=== PATIENT | male | born 1980 | race Caucasian/White ===

== ENCOUNTER 2020-12-28 05:37 | Outpatient (RCR) | payer BC, SELFPAY ==
[2020-12-07] MEDS: Normal Saline Flush 10 ML SYR IVP (10:13)
[2020-12-07 10:20] LABS: Abs Immature Grans 0.01 10^3/uL (0.0-0.06); Absolute Basophil Count 0.02 10^3/uL (0.0-0.2); Absolute Eosinophil Count 0.08 10^3/uL (0.0-0.7); Absolute Lymphocyte Count 1.67 10^3/uL (1.2-3.4); Absolute Monocyte Count 0.49 10^3/uL (0.1-0.8); Absolute Neutrophil Count 1.17 10^3/uL (1.2-6.7); Basophils % 0.6; Eosinophils % 2.3; HCT 39.2 % (40.0-50.0); HGB 12.1 g/dL (13.5-17.5); Immature Grans % 0.3; Lymphocytes % 48.5; MCH 24.7 pg (27.0-33.0); MCHC 30.9 % (32.0-36.0); MCV 80.2 fL (80-95); MPV 9.9 fL (8.0-11.0); Monocytes % 14.2; Neutrophils % 34.1; Nucleated RBC 0 %; Platelet Count 212 10^3/uL (130-400); RBC 4.89 10^6/uL (4.36-5.78); RDW 13.5 % (11.8-14.1); RDW-SD 39.1 fL; WBC 3.44 10^3/uL (4.4-10.8)
[2020-12-07 10:32] LABS: ALT 30 U/L (16-63); AST 22 U/L (15-37); Albumin 3.7 g/dL (3.4-5.0); Alkaline Phosphatase 64 U/L (46-116); Anion Gap 11.2 mmol/L (3-11); BUN 17 mg/dL (7-18); Bilirubin, Total 0.3 mg/dL (0.2-1.0); CO2 24.8 mmol/L (21.0-32.0); CREATININE 0.9 mg/dL (0.70-1.30); Calcium 8.6 mg/dL (8.5-10.1); Chloride 108 mmol/L (98-107); Glucose 101 mg/dL (74-106); Potassium 4.3 mmol/L (3.5-5.1); Sodium 144 mmol/L (136-145); Total Protein 7.1 g/dL (6.4-8.2)
[2020-12-14] MEDS: Normal Saline Flush 10 ML SYR IVP (10:45)
[2020-12-14 10:49] LABS: Abs Immature Grans 0.03 10^3/uL (0.0-0.06); Absolute Basophil Count 0.03 10^3/uL (0.0-0.2); Absolute Eosinophil Count 0.06 10^3/uL (0.0-0.7); Absolute Lymphocyte Count 2.16 10^3/uL (1.2-3.4); Absolute Monocyte Count 0.56 10^3/uL (0.1-0.8); Absolute Neutrophil Count 2.36 10^3/uL (1.2-6.7); Basophils % 0.6; Eosinophils % 1.2; HCT 42.6 % (40.0-50.0); HGB 13.3 g/dL (13.5-17.5); Immature Grans % 0.6; Lymphocytes % 41.5; MCH 24.7 pg (27.0-33.0); MCHC 31.2 % (32.0-36.0); MCV 79.2 fL (80-95); Monocytes % 10.8; Neutrophils % 45.3; Nucleated RBC 0 %; Platelet Count 289 10^3/uL (130-400); RBC 5.38 10^6/uL (4.36-5.78); RDW-SD 39.9 fL
[2020-12-14 11:02] LABS: ALT 44 U/L (16-63); AST 30 U/L (15-37); Alkaline Phosphatase 68 U/L (46-116); Anion Gap 10.5 mmol/L (3-11); BUN 11 mg/dL (7-18); Bilirubin, Total 0.4 mg/dL (0.2-1.0); CO2 26.5 mmol/L (21.0-32.0); CREATININE 0.8 mg/dL (0.70-1.30); Calcium 8.8 mg/dL (8.5-10.1); Chloride 106 mmol/L (98-107); Glucose 130 mg/dL (74-106); Sodium 143 mmol/L (136-145); Total Protein 7.7 g/dL (6.4-8.2)
[2020-12-28] MEDS: Normal Saline Flush 10 ML SYR IVP (09:06)
[2020-12-28 09:23] LABS: Abs Immature Grans 0.03 10^3/uL (0.0-0.06); Absolute Basophil Count 0.02 10^3/uL (0.0-0.2); Absolute Eosinophil Count 0.08 10^3/uL (0.0-0.7); Absolute Lymphocyte Count 1.64 10^3/uL (1.2-3.4); Absolute Monocyte Count 0.78 10^3/uL (0.1-0.8); Basophils % 0.3; Eosinophils % 1.1; HCT 41.4 % (40.0-50.0); HGB 13.2 g/dL (13.5-17.5); Immature Grans % 0.4; Lymphocytes % 23.3; MCH 24.3 pg (27.0-33.0); MCHC 31.9 % (32.0-36.0); MCV 76.2 fL (80-95); MPV 10.6 fL (8.0-11.0); Monocytes % 11.1; Neutrophils % 63.8; Nucleated RBC 0 %; Platelet Count 217 10^3/uL (130-400); RBC 5.43 10^6/uL (4.36-5.78); RDW-SD 39.5 fL; WBC 7.05 10^3/uL (4.4-10.8)
[2020-12-28 09:40] LABS: ALT 54 U/L (16-63); AST 34 U/L (15-37); Albumin 3.9 g/dL (3.4-5.0); Alkaline Phosphatase 96 U/L (46-116); Anion Gap 9.4 mmol/L (3-11); BUN 13 mg/dL (7-18); Bilirubin, Total 0.7 mg/dL (0.2-1.0); CO2 26.6 mmol/L (21.0-32.0); CREATININE 0.7 mg/dL (0.70-1.30); Chloride 105 mmol/L (98-107); Glucose 103 mg/dL (74-106); Potassium 4.1 mmol/L (3.5-5.1); Sodium 141 mmol/L (136-145)
== END 2021-01-05 23:59 | disposition home or self-care (01) ==
LOC: INF 05:37
PROVIDERS: PCP Family Medicine; Visit Provider Internal Medicine Hematology & Oncology
DX: C18.6 Malignant neoplasm of descending colon (principal); Z45.2 Encounter for adjustment and management of vascular access device
CPT/HCPCS: 36591; 80053; 85025

== ENCOUNTER 2021-01-25 08:00 | Outpatient (RCR) | payer BC, SELFPAY ==
[2021-01-11] MEDS: Normal Saline Flush 10 ML SYR IVP (08:04)
[2021-01-11 08:05] LABS: Abs Immature Grans 0.02 10^3/uL (0.0-0.06); Absolute Basophil Count 0.03 10^3/uL (0.0-0.2); Absolute Eosinophil Count 0.08 10^3/uL (0.0-0.7); Absolute Lymphocyte Count 1.59 10^3/uL (1.2-3.4); Absolute Monocyte Count 0.79 10^3/uL (0.1-0.8); Basophils % 0.6; Eosinophils % 1.5; HCT 41.7 % (40.0-50.0); Immature Grans % 0.4; Lymphocytes % 29.9; MCH 24.3 pg (27.0-33.0); MCHC 31.2 % (32.0-36.0); MCV 78.1 fL (80-95); MPV 9.5 fL (8.0-11.0); Monocytes % 14.9; Neutrophils % 52.7; Nucleated RBC 0 %; Platelet Count 177 10^3/uL (130-400); RBC 5.34 10^6/uL (4.36-5.78); RDW 15.7 % (11.8-14.1); RDW-SD 42.8 fL; WBC 5.31 10^3/uL (4.4-10.8)
[2021-01-11 08:17] LABS: ALT 61 U/L (16-63); AST 48 U/L (15-37); Albumin 3.6 g/dL (3.4-5.0); Alkaline Phosphatase 88 U/L (46-116); Anion Gap 4.3 mmol/L (3-11); BUN 14 mg/dL (7-18); Bilirubin, Total 0.4 mg/dL (0.2-1.0); CO2 27.7 mmol/L (21.0-32.0); CREATININE 0.9 mg/dL (0.70-1.30); Calcium 8.6 mg/dL (8.5-10.1); Chloride 107 mmol/L (98-107); Glucose 102 mg/dL (74-106); Potassium 3.9 mmol/L (3.5-5.1); Sodium 139 mmol/L (136-145); Total Protein 7.3 g/dL (6.4-8.2)
[2021-01-25 08:48] LABS: Abs Immature Grans 0.01 10^3/uL (0.0-0.06); Absolute Basophil Count 0.03 10^3/uL (0.0-0.2); Absolute Eosinophil Count 0.06 10^3/uL (0.0-0.7); Absolute Lymphocyte Count 1.51 10^3/uL (1.2-3.4); Absolute Monocyte Count 0.48 10^3/uL (0.1-0.8); Absolute Neutrophil Count 1.99 10^3/uL (1.2-6.7); Basophils % 0.7; Eosinophils % 1.5; HCT 42.5 % (40.0-50.0); HGB 13.3 g/dL (13.5-17.5); Immature Grans % 0.2; MCH 24.2 pg (27.0-33.0); MCHC 31.3 % (32.0-36.0); MCV 77.4 fL (80-95); MPV 10.2 fL (8.0-11.0); Monocytes % 11.8; Neutrophils % 48.8; Nucleated RBC 0 %; Platelet Count 121 10^3/uL (130-400); RBC 5.49 10^6/uL (4.36-5.78); RDW-SD 45.8 fL; WBC 4.08 10^3/uL (4.4-10.8)
[2021-01-25 09:00] LABS: ALT 120 U/L (16-63); AST 82 U/L (15-37); Albumin 3.5 g/dL (3.4-5.0); Alkaline Phosphatase 99 U/L (46-116); Anion Gap 8.4 mmol/L (3-11); BUN 12 mg/dL (7-18); Bilirubin, Total 0.2 mg/dL (0.2-1.0); CO2 26.6 mmol/L (21.0-32.0); CREATININE 0.9 mg/dL (0.70-1.30); Calcium 8.7 mg/dL (8.5-10.1); Chloride 109 mmol/L (98-107); Glucose 129 mg/dL (74-106); Potassium 3.8 mmol/L (3.5-5.1); Sodium 144 mmol/L (136-145); Total Protein 7.2 g/dL (6.4-8.2)
[2021-01-25] MEDS: Normal Saline Flush 10 ML SYR IVP (09:54)
== END 2021-02-05 23:59 | disposition home or self-care (01) ==
LOC: INF 08:00
PROVIDERS: PCP Family Medicine; Visit Provider Internal Medicine Hematology & Oncology
DX: C18.6 Malignant neoplasm of descending colon (principal); Z45.2 Encounter for adjustment and management of vascular access device
CPT/HCPCS: 36591; 80053; 85025

== ENCOUNTER 2021-02-22 04:19 | Outpatient (RCR) | payer BC, SELFPAY ==
[2021-02-08] MEDS: Normal Saline Flush 10 ML SYR IVP (08:22)
[2021-02-08 08:24] LABS: Abs Immature Grans 0.04 10^3/uL (0.0-0.06); Absolute Basophil Count 0.03 10^3/uL (0.0-0.2); Absolute Eosinophil Count 0.06 10^3/uL (0.0-0.7); Absolute Lymphocyte Count 1.48 10^3/uL (1.2-3.4); Absolute Monocyte Count 0.61 10^3/uL (0.1-0.8); Absolute Neutrophil Count 1.98 10^3/uL (1.2-6.7); Basophils % 0.7; Eosinophils % 1.4; HCT 42.5 % (40.0-50.0); HGB 13.3 g/dL (13.5-17.5); Lymphocytes % 35.2; MCH 24.1 pg (27.0-33.0); MCHC 31.3 % (32.0-36.0); MCV 77.1 fL (80-95); MPV 9.3 fL (8.0-11.0); Monocytes % 14.5; Neutrophils % 47.2; Nucleated RBC 0 %; Platelet Count 123 10^3/uL (130-400); RBC 5.51 10^6/uL (4.36-5.78); RDW 18.6 % (11.8-14.1); RDW-SD 49.1 fL
[2021-02-08 08:37] LABS: ALT 84 U/L (16-63); AST 50 U/L (15-37); Albumin 3.5 g/dL (3.4-5.0); Alkaline Phosphatase 105 U/L (46-116); Anion Gap 9.5 mmol/L (3-11); BUN 13 mg/dL (7-18); Bilirubin, Total 0.4 mg/dL (0.2-1.0); CO2 26.5 mmol/L (21.0-32.0); CREATININE 1.1 mg/dL (0.70-1.30); Calcium 9.3 mg/dL (8.5-10.1); Chloride 106 mmol/L (98-107); Glucose 96 mg/dL (74-106); Sodium 142 mmol/L (136-145); Total Protein 7.4 g/dL (6.4-8.2)
[2021-02-22] MEDS: Normal Saline Flush 10 ML SYR IVP (07:56)
[2021-02-22 08:10] LABS: Abs Immature Grans 0.01 10^3/uL (0.0-0.06); Absolute Basophil Count 0.02 10^3/uL (0.0-0.2); Absolute Eosinophil Count 0.07 10^3/uL (0.0-0.7); Absolute Lymphocyte Count 0.99 10^3/uL (1.2-3.4); Absolute Monocyte Count 0.44 10^3/uL (0.1-0.8); Basophils % 0.5; Eosinophils % 1.7; HCT 40.5 % (40.0-50.0); HGB 12.9 g/dL (13.5-17.5); Immature Grans % 0.2; Lymphocytes % 24.6; MCH 24.8 pg (27.0-33.0); MCHC 31.9 % (32.0-36.0); MCV 77.9 fL (80-95); MPV 10.4 fL (8.0-11.0); Monocytes % 10.9; Neutrophils % 62.1; Nucleated RBC 0 %; Platelet Count 109 10^3/uL (130-400); RDW 19.6 % (11.8-14.1); RDW-SD 52.6 fL; WBC 4.03 10^3/uL (4.4-10.8)
[2021-02-22 08:26] LABS: ALT 51 U/L (16-63); AST 28 U/L (15-37); Albumin 3.2 g/dL (3.4-5.0); Alkaline Phosphatase 104 U/L (46-116); Anion Gap 7.4 mmol/L (3-11); BUN 12 mg/dL (7-18); Bilirubin, Total 0.5 mg/dL (0.2-1.0); CO2 24.6 mmol/L (21.0-32.0); CREATININE 0.9 mg/dL (0.70-1.30); Calcium 8.3 mg/dL (8.5-10.1); Chloride 108 mmol/L (98-107); Glucose 154 mg/dL (74-106); Potassium 3.9 mmol/L (3.5-5.1); Sodium 140 mmol/L (136-145)
== END 2021-03-07 23:59 | disposition home or self-care (01) ==
LOC: INF 04:19
PROVIDERS: PCP Family Medicine; Visit Provider Internal Medicine Hematology & Oncology
DX: C18.6 Malignant neoplasm of descending colon (principal); Z45.2 Encounter for adjustment and management of vascular access device
CPT/HCPCS: 36591; 80053; 85025

== ENCOUNTER 2021-04-05 00:54 | Outpatient (RCR) | payer BC, SELFPAY ==
[2021-03-08] MEDS: Normal Saline Flush 10 ML SYR IVP (07:54)
[2021-03-08 07:58] LABS: Abs Immature Grans 0.01 10^3/uL (0.0-0.06); Absolute Basophil Count 0.02 10^3/uL (0.0-0.2); Absolute Eosinophil Count 0.06 10^3/uL (0.0-0.7); Absolute Lymphocyte Count 1.35 10^3/uL (1.2-3.4); Absolute Monocyte Count 0.51 10^3/uL (0.1-0.8); Absolute Neutrophil Count 1.75 10^3/uL (1.2-6.7); Basophils % 0.5; Eosinophils % 1.6; HCT 39.1 % (40.0-50.0); HGB 12.8 g/dL (13.5-17.5); Immature Grans % 0.3; Lymphocytes % 36.5; MCH 25.7 pg (27.0-33.0); MCHC 32.7 % (32.0-36.0); MCV 78.4 fL (80-95); MPV 10.5 fL (8.0-11.0); Monocytes % 13.8; Neutrophils % 47.3; Nucleated RBC 0 %; Platelet Count 91 10^3/uL (130-400); RBC 4.99 10^6/uL (4.36-5.78); RDW 20.2 % (11.8-14.1); RDW-SD 56.2 fL
[2021-03-08 08:16] LABS: ALT 67 U/L (16-63); AST 52 U/L (15-37); Albumin 3.2 g/dL (3.4-5.0); Alkaline Phosphatase 107 U/L (46-116); Anion Gap 8.5 mmol/L (3-11); BUN 12 mg/dL (7-18); Bilirubin, Total 0.4 mg/dL (0.2-1.0); CO2 25.5 mmol/L (21.0-32.0); CREATININE 0.9 mg/dL (0.70-1.30); Calcium 8.3 mg/dL (8.5-10.1); Chloride 108 mmol/L (98-107); Glucose 150 mg/dL (74-106); Potassium 3.9 mmol/L (3.5-5.1); Sodium 142 mmol/L (136-145)
[2021-03-08 09:02] LABS: Anisocytosis 2+; Diff Comment Diff Reviewed
[2021-03-22] MEDS: Normal Saline Flush 10 ML SYR IVP (07:58)
[2021-03-22 08:04] LABS: Abs Immature Grans 0.02 10^3/uL (0.0-0.06); Absolute Basophil Count 0.03 10^3/uL (0.0-0.2); Absolute Lymphocyte Count 1.49 10^3/uL (1.2-3.4); Absolute Monocyte Count 0.56 10^3/uL (0.1-0.8); Absolute Neutrophil Count 1.74 10^3/uL (1.2-6.7); Basophils % 0.8; Eosinophils % 2.5; HCT 38.4 % (40.0-50.0); HGB 12.3 g/dL (13.5-17.5); Immature Grans % 0.5; Lymphocytes % 37.8; MCH 25.7 pg (27.0-33.0); MCV 80.2 fL (80-95); MPV 10.7 fL (8.0-11.0); Monocytes % 14.2; Neutrophils % 44.2; Nucleated RBC 0 %; Platelet Count 85 10^3/uL (130-400); RBC 4.79 10^6/uL (4.36-5.78); RDW 19.6 % (11.8-14.1); RDW-SD 56.3 fL; WBC 3.94 10^3/uL (4.4-10.8)
[2021-03-22 08:29] LABS: Diff Comment Diff Reviewed; RBC Morphology Normal
[2021-03-22 08:40] LABS: ALT 56 U/L (16-63); AST 54 U/L (15-37); Albumin 3.2 g/dL (3.4-5.0); Alkaline Phosphatase 94 U/L (46-116); BUN 13 mg/dL (7-18); Bilirubin, Total 0.7 mg/dL (0.2-1.0); CREATININE 0.9 mg/dL (0.70-1.30); Calcium 8.4 mg/dL (8.5-10.1); Chloride 108 mmol/L (98-107); Glucose 140 mg/dL (74-106); Potassium 3.7 mmol/L (3.5-5.1); Sodium 141 mmol/L (136-145); Total Protein 6.8 g/dL (6.4-8.2)
[2021-03-22 18:11] LABS: CEA <2.0 ng/mL (See Note)
[2021-04-05] MEDS: Normal Saline Flush 10 ML SYR IVP (08:26)
[2021-04-05 08:41] LABS: Abs Immature Grans 0.03 10^3/uL (0.0-0.06); Absolute Basophil Count 0.03 10^3/uL (0.0-0.2); Absolute Eosinophil Count 0.09 10^3/uL (0.0-0.7); Absolute Lymphocyte Count 1.49 10^3/uL (1.2-3.4); Absolute Monocyte Count 0.76 10^3/uL (0.1-0.8); Absolute Neutrophil Count 2.58 10^3/uL (1.2-6.7); Basophils % 0.6; Eosinophils % 1.8; HCT 40.3 % (40.0-50.0); HGB 12.9 g/dL (13.5-17.5); Immature Grans % 0.6; Lymphocytes % 29.9; MCH 26.6 pg (27.0-33.0); MCV 83.1 fL (80-95); MPV 10.2 fL (8.0-11.0); Monocytes % 15.3; Neutrophils % 51.8; Nucleated RBC 0 %; Platelet Count 107 10^3/uL (130-400); RBC 4.85 10^6/uL (4.36-5.78); RDW 18.9 % (11.8-14.1); RDW-SD 57.6 fL; WBC 4.98 10^3/uL (4.4-10.8)
[2021-04-05 08:55] LABS: ALT 60 U/L (16-63); AST 52 U/L (15-37); Albumin 3.5 g/dL (3.4-5.0); Alkaline Phosphatase 113 U/L (46-116); Anion Gap 8.7 mmol/L (3-11); BUN 12 mg/dL (7-18); Bilirubin, Total 0.5 mg/dL (0.2-1.0); CO2 25.3 mmol/L (21.0-32.0); CREATININE 0.9 mg/dL (0.70-1.30); Calcium 8.8 mg/dL (8.5-10.1); Chloride 108 mmol/L (98-107); Glucose 112 mg/dL (74-106); Sodium 142 mmol/L (136-145); Total Protein 7.3 g/dL (6.4-8.2)
[2021-04-05 18:21] LABS: CEA <0.5 ng/mL (See Note)
== END 2021-04-07 23:59 | disposition home or self-care (01) ==
LOC: INF 00:54
PROVIDERS: PCP Family Medicine; Visit Provider Internal Medicine Hematology & Oncology
DX: C18.6 Malignant neoplasm of descending colon (principal); Z45.2 Encounter for adjustment and management of vascular access device
CPT/HCPCS: 36591; 80053; 82378; 85025

== ENCOUNTER 2021-04-07 12:26 | Observation (INO) | payer BC, SELFPAY ==
[2021-04-07 12:32] VITALS: BP 116/78; PULSE 96; RESP 18; TEMP 37.4; O2SAT 96
--- NOTE | 2021-04-07 12:45 | DI.RAD_ITS ---
Exam(s) XR PORTABLE CHEST AP EXAM: XR PORTABLE CHEST AP CLINICAL HISTORY: Neutropenic, eval for pneumonia. TECHNIQUE: 2D digital imaging was performed. COMPARISON: No exams were available for comparison FINDINGS: Heart size is upper normal. The mediastinum is not widened. Lungs are clear. No infiltrates nor obvious pleural effusions. IMPRESSION: No acute pulmonary findings on this single AP portable view of the chest. DATA REPOSITORY: RADIATION DOSE DELIVERED: All CT scans at this facility use at least one of these dose optimization techniques: automated exposure control; mA and/or kV adjustment per patient size (includes targeted e xams where dose is matched to clinical indication); or iterative reconstruction.
--- NOTE | 2021-04-07 12:48 | ED.GENADUL_ITS ---
Discharge Plan Disposition Patient Disposition: [facility] INPATIENT Condition: Improving Discharge Details Chief Complaint: Fever Clinical Impression: Pneumonitis, Immunocompromised, Fever Primary Care Provider: Milka Castañeda ED Provider: Paulino Burden Home Meds and New Rx's Prescriptions: No Action trazodone 50 mg Tablet 50 mg PO DAILY PRNRF: 0 prochlorperazine maleate 10 mg Tablet 10 mg PO Q6H PRNRF: 0 pantoprazole 40 mg Tablet,Delayed Release (Dr/Ec) 40 mg PO BID RF: 0 dexamethasone 4 mg Tablet PO BID RF: 0 Medical Decision Making 40-year-old male with a past medical history of stage III colon cancer, currently on chemotherapy of FOLFOX who just received his last infusion 2 days, partial colectomy with ostomy, previous upper GI bleed, who is vaccinated against Covid with 3 shots of Pfizer, the most recent booster being l ast month presents today for fever and chills. is at bedside, and she and her state that they were deaccessing support from chemo this morning and noted that there was no blood return. It felt like it was flushing normally otherwise. Patient also noticed that he was febrile with a temperature of 101.1, and had some chills this morning. He did have a single episode of coughing on drinking juice this morning but no other recent cough. notes that he was notably tired and fatigued yesterday, more so than when he normally receives his chemo. Patient denies any urinary complaint, headache, neck pain, abdominal pain or other complaint. He denies any change in ostomy output, bladder or other discharge. Physical exam demonstrates nontender abdomen, negative meningeal signs, no abnormal lung sounds. Temperature is borderline 99.3. Suspect potential bacteremia. Port may be a source, but I am uncertain. We will draw blood cultures start broad-spectrum antibiotics, monitor closely plan to admit and reassess. 3:30 PM Laboratory work-up has returned, patient has no white count, he does have lymphopenia, and minimal left shift. Lactate is 2, electrolytes are stable aside for a slightly low potassium at 3.2. He has been given 40 mEq of oral potassium. Calcium is low however this is in the setting of a low albumin. Procalcitonin is not negative, his pro-Freddy is 0.1, urinalysis is negative for infection, chest x-ray shows evidence of right upper infiltrate/pneumonitis. Potentially related to his coughing episode or an earlier infection. Concern is still for bacteremia potentially from his port or in general from his immunocompromise state. He has been started on vancomycin, day and Zosyn already, will contact the hospitalist for potential admission for continued antibiotic. Covid and influenza test are negative. 3:48 PM Discussed the case with the hospitalist Dr. Lora, he agrees with the assessment and plan. I will place bridging orders on his behalf. I have extensively reviewed the treatment plan with the patient. I have addressed all patient concerns at this time. I have also discussed the plan with the admitting physician and they agree with the current assessment and plan and have agreed to assume responsibility for the patient. All parties demonstrate verbal understanding and agreement with our assessment and plan at this time. The documentation in this chart was dictated using [employer] dictation software. Please excuse any dictation errors. FINDINGS: Tubes, catheters and devices: Right central line catheter in place with the tip at the mid to distal SVC level. Lungs: There is some hazy increased airspace opacity in the right upper lobe, mild. Pleural spaces: Unremarkable. No pleural effusion. No pneumothorax. Heart/Mediastinum: Unremarkable. No cardiomegaly. Bones/joints: Unremarkable. IMPRESSION: Minimal right upper lobe pneumonitis. Thank you for allowing us to participate in the care of your patient. Dictated and Authenticated by: Fadumo Munoz MD 04/07/2021 2:46 PM Eastern Time ([place] & [place]) HPI General Date/Time Provider Initiated Documentation: 04/07/21 12:28 . HPI Narrative: 40-year-old male with a past medical history of stage III colon cancer, currently on chemotherapy of FOLFOX who just received his last infusion 2 days, partial colectomy with ostomy, previous upper GI bleed, who is vaccinated against Covid with 3 shots of Pfizer, the most recent booster being last month presents today for fever and chills. is at bedside, and she and her state that they were deaccessing support from chemo this morning and noted that there was no blood return. It felt like it was flushing normally otherwise. Patient also noticed that he was febrile with a temperature of 101.1, and had some chills this morning. He did have a single episode of coughing on drinking juice this morning but no other recent cough. notes that he was notably tired and fatigued yesterday, more so than when he normally receives his chemo. Patient denies any urinary complaint, headache, neck pain, abdominal pain or other complaint. He denies any change in ostomy output, bladder or other discharge. Related Data Home Medications Medication Instructions Recorded Confirmed dexamethasone mg PO BID 04/07/21 pantoprazole 40 mg PO BID 04/07/21 04/07/21 prochlorperazine maleate 10 mg PO Q6H PRN 04/07/21 04/07/21 trazodone 50 mg PO DAILY PRN 04/07/21 04/07/21 Allergies Allergy/AdvReac Type Severity Reaction Status Date / Time No Known Allergies Allergy Unverified 04/07/21 12:38 General Stated Complaint: Fever HUGO: 3 Review of Systems All systems reviewed & are unremarkable except as noted in HPI and below PFSH Social History Smoking risk assessment performed?: No Exam Narrative Exam Narrative: 1.Const: Well-nourished, Well-developed, appearing stated age 2.Eyes: PERRL, no conjunctival injection, and symmetrical lids. 3.ENT: Atraumatic external nose and ears. Moist MM. Neck: Symmetric, trachea midline, No thyromegaly. Patient demonstrates good movement of cervical neck. There is no nuchal rigidity, no nuchal tenderness. Patient is able to flex the neck without any difficulty or significant pain. Negative Kernig's and Brudzinski sign. 4.CVS: +S1/S2, No murmurs or gallops. Peripheral pulses 2+ and equal in all extremities. Brisk capillary refill in all extremities. 5.RESP: Unlabored respiratory effort. Clear to auscultation bilaterally. No wheezes rales or rhonchi 6.GI: Soft, Nontender/Nondistended, No hepatosplenomegaly. No guarding or rebound. Ostomy site unremarkable. Mucous pink and moist. No blood. 7.MSK: Normocephalic/Atraumatic, Extremities w/o deformity or ttp No cyanosis or clubbing, Normal movement of all extremities 8.Skin: Warm, Dry. No rashes or lesions. Evaluation of the right upper port demonstrates no asymmetric warmth or fluctuance or tenderness for that matter. 9.Neuro: biztalk architect II-XII grossly intact. Sensation grossly intact, no focal neurol ogic deficits. 10.Psych: (AAO) x3. Appropriate mood and affect Course Vital Signs Vital signs: Vital Signs Temperature 37.4 C 04/07/21 12:32 Pulse 96 H 04/07/21 12:32 Respiratory Rate 18 04/07/21 12:32 Blood Pressure 116/78 04/07/21 12:32 Pulse Oximetry 96 04/07/21 12:32 Temperature 37.4 C 04/07/21 12:32 Temperature Source Oral 04/07/21 12:32 Pulse 96 H 04/07/21 12:32 Respiratory Rate 18 04/07/21 12:32 Blood Pressure 116/78 04/07/21 12:32 Blood Pressure Position Sitting 04/07/21 12:32 Pulse Oximetry 96 04/07/21 12:32 Oxygen Delivery Method Room Air 04/07/21 12:32 Oxygen Flow Rate 0 04/07/21 12:32 Lab/Test Results Lab/Test Results: 04/07/21 12:45 Blood Blood Culture - Pending 04/07/21 12:45 Blood Blood Culture - Pending
[2021-04-07] MEDS: Normal Saline 1,000 ML 1000 ML IV (13:15)
[2021-04-07 13:25] LABS: Abs Immature Grans 0.09 10^3/uL (0.0-0.06); Absolute Basophil Count 0.01 10^3/uL (0.0-0.2); Absolute Lymphocyte Count 0.54 10^3/uL (1.2-3.4); Absolute Monocyte Count 0.58 10^3/uL (0.1-0.8); Absolute Neutrophil Count 6.81 10^3/uL (1.2-6.7); Basophils % 0.1; HGB 11.7 g/dL (13.5-17.5); Immature Grans % 1.1; Lymphocytes % 6.7; MCH 26.6 pg (27.0-33.0); MCHC 31.6 % (32.0-36.0); MCV 84.1 fL (80-95); MPV 10.8 fL (8.0-11.0); Monocytes % 7.2; Neutrophils % 84.9; Nucleated RBC 0 %; Platelet Count 93 10^3/uL (130-400); RDW 19.2 % (11.8-14.1); RDW-SD 58.9 fL; WBC 8.03 10^3/uL (4.4-10.8)
[2021-04-07] MEDS: PIPERACILLIN/TAZO 3.375 GM in Normal Saline 50 ML IVPB (13:30)
[2021-04-07 13:40] LABS: ALT 63 U/L (16-63); AST 54 U/L (15-37); Albumin 3.1 g/dL (3.4-5.0); Alkaline Phosphatase 88 U/L (46-116); Anion Gap 10.3 mmol/L (3-11); BUN 18 mg/dL (7-18); Bilirubin, Total 0.4 mg/dL (0.2-1.0); CO2 23.7 mmol/L (21.0-32.0); Calcium 7.8 mg/dL (8.5-10.1); Chloride 107 mmol/L (98-107); Glucose 152 mg/dL (74-106); Potassium 3.2 mmol/L (3.5-5.1); Sodium 141 mmol/L (136-145); Total Protein 6.6 g/dL (6.4-8.2)
[2021-04-07 13:45] LABS: Anisocytosis 1+; Diff Comment PLT Morph Reviewed
[2021-04-07] MEDS: VANCOMYCIN/WATER (PEG) 2 GM/400 ML BAG IVPB (13:58)
[2021-04-07 14:05] LABS: Procalcitonin 0.1 ng/mL
[2021-04-07] MEDS: DOXYCYCLINE 100 MG in Normal Saline 100 ML IVPB (14:37)
[2021-04-07 14:38] LABS: Bilirubin Negative (Negative); Blood Negative (Negative); Clarity Clear (Clear); Glucose Negative (Negative); Ketones Negative (Negative); Leukocyte Esterase Negative (Negative); Nitrite Negative (Negative); Specific Gravity 1.025 (1.005-1.025); Urobilinogen 0.2 EU/dL (Up TO 0.2)
--- NOTE | 2021-04-07 14:46 | DI.VRAD_ITS ---
PROCEDURE INFORMATION: Exam: XR Chest Exam date and time: 04/07/2021 12:48 PM Age: 40 years old Clinical indication: Other: Neutropenic, eval for pneumonia TECHNIQUE: Imaging protocol: XR of the chest. Views: 1 view. Other technique: Portable exam. COMPARISON: No relevant prior studies available. FINDINGS: Tubes, catheters and devices: Right central line catheter in place with the tip at the mid to distal SVC level. Lungs: There is some hazy increased airspace opacity in the right upper lobe, mild. Pleural spaces: Unremarkable. No pleural effusion. No pneumothorax. Heart/Mediastinum: Unremarkable. No cardiomegaly. Bones/joints: Unremarkable. IMPRESSION: Minimal right upper lobe pneumonitis. Dictated and Authenticated by: Fadumo Munoz MD. Ordering:YARED Bob MD
[2021-04-07 14:54] VITALS: BP 119/68; PULSE 80; RESP 16; TEMP 36.7; O2SAT 94
[2021-04-07] MEDS: Potassium Chloride 20 MEQ TABCR 40 MEQ PO (14:58)
[2021-04-07 15:02] LABS: COVID-19 PCR Negative (Negative)
[2021-04-07 16:53] VITALS: BP 126/74; PULSE 74; RESP 16; TEMP 36.1; O2SAT 95
--- NOTE | 2021-04-07 17:43 | W.PM.HP.N ---
Date of service: 04/07/21 Time of Service: 17:43 Assessment and Plan Assessment and plan (1) Fever: Status: Acute Assessment and plan: subjective fever today. No documented fever on arrival. No lab evidence for acute infection. Blood cultures were obtained and he was started on broad spectrum antibiotics which I feel is an over call. However, given his advanced colon cancer and recent chemotherapy, I will continue the same until we have negative blood cultures. If his blood cultures do turn positive then he will need his mediport removed and cultured and an echo will be done. If his blood cultures are no growth then I will dc his antibiotics and discharge him home. Qualifiers: Fever type: unspecified Qualified Code(s): R50.9 - Fever, unspecified (2) Encounter for care related to Port-a-Cath: Status: Acute Assessment and plan: r/o port-a-cath failure; recommend infusion and indwelling of alteplase 2 mg x 1 hr and then check patency; if this fails then recommend replacement of his mediport catheter (3) H/O colon cancer, stage III: Status: Acute Assessment and plan: s/p treatment #10 of FOLFOX therapy; s/p partial colectomy and ostomy in either September or October 2020 done at [facility] [place] History of Present Illness History of Present Illness Chief Complaint: fever, mediport failure Narrative: 40 yr old male w/ PMH of stage 3 adenocarcinoma of the colon, s/p hemicolectomy and ostomy dx 09/2020 and now on FOLFOX chemotherapy through [facility] oncology round 10 of , which he just completed. He says that he went for labs on Thursday (2days ago) prior to initiating his most recent chemotherapy run and his mediport flushed and nisha back fine and labs were obtained from it. He had his chemotherapy started and today completed his run but when he and his de-accessed the port the port would not draw back but was able to be flushed. He checked his vitals including his temperature and noted he had a low grade fever of 101. He called his oncologist senior coldfusion developer and was told to go to the nearest hospital. He says that he has felt chilled today but no actual rigors. He denies any cough or sputum production, chest pain/pressure, sinus pressure, earache, sore throat, nausea or vomiting nor any abedominal pains nor any urinary discomfort. He has a colostomy and has had his usual output and consistency. On arrival to the ER his vital signs showed him to be afebrile at 37.4 C. The rest of his vital signs were stable. His labs demonstrated normal WBC of 8000, minimally elevated lactate of 2.0, CMP demonstrating low potassium of 3.2, low calcium of 7.8 but his albumin is low at 3.1 (corrected calcium is 8.52. CRP is normal at 0.23 and procalcitonin is 0.1. UA is unremarkable. His CXR was initially read by [facility] as showing a subtle RUL hazy airspace opacity while our in house radiologist read this as showing no acute pulmonary findings. The patient did offer that he had a brief episode of coughing and gagging after taking a drink this morning. However he denies any dyspnea or coughing this afernoon. Treatment in the ER included obtaining blood cultures and initiation of broad spectrum antibiotics including doxycycline, Zosyn, and Vancomycin. Despite the mediport not being able to have blood drawn back, there is no pain over the mediport and no erythema or induration. Review of Systems All systems reviewed & are unremarkable except as noted in HPI and below PFSH Medical History (Updated 04/07/21 @ 21:36 by Willy Lora) H/O colon cancer, stage III History of upper gastrointestinal bleeding related to H. pylori infection Family History (Updated 04/07/21 @ 18:04 by Willy Lora) Father Cancer multiple cancers; believed to be related to prior multiple organ recipient (kidney and liver transplants) Mother Succinylcholine adverse reaction Social History Smoking/Tobacco Use Status: Never Smoking risk assessment performed?: Yes Alcohol Intake: never Drug use: Never Substance use type: does not use Do you feel safe at home: Yes Do you feel safe in your relationship?: Yes Meds Allergies and Home Medications Allergies Allergy/AdvReac Type Severity Reaction Status Date / Time No Known Allergies Allergy Unverified 04/07/21 12:38 Home Medications Medication Instructions Recorded Confirmed Type dexamethasone mg PO BID 04/07/21 History pantoprazole 40 mg PO BID 04/07/21 04/07/21 History prochlorperazine maleate 10 mg PO Q6H PRN 04/07/21 04/07/21 History trazodone 50 mg PO DAILY PRN 04/07/21 04/07/21 History Exam Narrative Exam Narrative: Obese white male (BMI 30), alert and oriented x 3. no acute distress, sitting up in bed talking w/ his primary nurse; skin non-diaphoretic, no cyanosis Heent: no facial asymmetry, no sinus tenderness, oropharynx is non-injected, no exudates Neck is supple, nontender, no adenopathy, normal carotid pulses, no JVD, no thyromegaly Lungs are clear to auscultation Heart: RRR, no murmur or rub or gallops chest wall: mediport in right infraclavicular space, no tenderness, no induration, no redness Abdomen: soft, nontender, no organomegaly, no masses, no bruits; normal bowel sounds Extremities: no edema or cyanosis or tenderness; normal ROM and strength Neuro exam grossly intact Results Labs Result diagrams: 04/07/21 13:15 04/07/21 13:15 Labs: Laboratory Results - last 24 hr 04/07/21 04/07/21 04/07/21 12:55 13:15 13:15 WBC RBC Hgb Hct MCV MCH MCHC RDW Plt Count MPV Immature Gran % Neutrophils % Lymphocytes % Monocytes % Eosinophils % Basophils % Nucleated RBC % Absolute Neutrophils Absolute Lymphocytes Absolute Monocytes Absolute Eosinophils Absolute Basophils RBC Morphology Anisocytosis VBG Lactate 2.0 H Sodium 141 Potassium 3.2 L Chloride 107 Carbon Dioxide 23.7 Anion Gap 10.3 BUN 18 D Creatinine 1.0 Estimated GFR/1.73 m2 >= 60.00 Glucose 152 H Calcium 7.8 L Total Bilirubin 0.4 AST 54 H ALT 63 Alkaline Phosphatase 88 Total Protein 6.6 Albumin 3.1 L Procalcitonin Urine Color Urine Clarity Urine pH Ur Specific Saxon Urine Protein Urine Ketones Urine Blood Urine Nitrite Urine Bilirubin Urine Urobilinogen Ur Leukocyte Esterase Urine Glucose COVID-19 Source NASOPHARYX SARS-CoV-2 (PCR) Negative 04/07/21 04/07/21 04/07/21 13:15 13:15 14:25 WBC 8.03 RBC 4.40 Hgb 11.7 L Hct 37.0 L MCV 84.1 MCH 26.6 L MCHC 31.6 L RDW 19.2 H Plt Count 93 L MPV 10.8 Immature Gran % 1.1 Neutrophils % 84.9 Lymphocytes % 6.7 Monocytes % 7.2 Eosinophils % 0.0 Basophils % 0.1 Nucleated RBC % 0 Absolute Neutrophils 6.81 H Absolute Lymphocytes 0.54 L Absolute Monocytes 0.58 Absolute Eosinophils 0.00 Absolute Basophils 0.01 RBC Morphology See Below Anisocytosis 1+ VBG Lactate Sodium Potassium Chloride Carbon Dioxide Anion Gap BUN Creatinine Estimated GFR/1.73 m2 Glucose Calcium Total Bilirubin AST ALT Alkaline Phosphatase Total Protein Albumin Procalcitonin 0.1 Urine Color Yellow Urine Clarity Clear Urine pH 6.0 Ur Specific Saxon 1.025 Urine Protein Negative Urine Ketones Negative Urine Blood Negative Urine Nitrite Negative Urine Bilirubin Negative Urine Urobilinogen 0.2 Ur Leukocyte Esterase Negative Urine Glucose Negative COVID-19 Source SARS-CoV-2 (PCR) Last Vital Signs Temp 36.1 C L 04/07/21 16:53 Pulse 74 04/07/21 16:53 Resp 16 04/07/21 16:53 BP 126/74 04/07/21 16:53 Pulse Ox 95 04/07/21 16:53
[2021-04-07 19:54] VITALS: BP 105/68; PULSE 64; RESP 17; TEMP 36.2; O2SAT 94
[2021-04-07] MEDS: Pantoprazole 40 MG TABCR PO (19:57)
[2021-04-07] MEDS: Prochlorperazine 10 MG TAB PO (20:01)
[2021-04-07] MEDS: PIPERACILLIN/TAZO 4.5 GM in Normal Saline 100 ML IVPB (20:01)
[2021-04-07] MEDS: Normal Saline Flush 10 ML SYR IVP (20:02)
[2021-04-07 20:08] LABS: C-Reactive Protein 0.23 mg/dL (0.0-0.3); Magnesium 1.8 mg/dL (1.8-2.4)
[2021-04-08 03:20] VITALS: BP 108/70; PULSE 58; RESP 18; TEMP 36.7; O2SAT 95
[2021-04-08] MEDS: VANCOMYCIN 1,500 MG in Normal Saline 250 ML 166.667 MG IVPB (03:23)
[2021-04-08] MEDS: PIPERACILLIN/TAZO 4.5 GM in Normal Saline 100 ML IVPB (05:19)
[2021-04-08 06:59] LABS: Abs Immature Grans 0.03 10^3/uL (0.0-0.06); Absolute Basophil Count 0.01 10^3/uL (0.0-0.2); Absolute Eosinophil Count 0.02 10^3/uL (0.0-0.7); Absolute Lymphocyte Count 1.31 10^3/uL (1.2-3.4); Absolute Monocyte Count 0.44 10^3/uL (0.1-0.8); Basophils % 0.2; Eosinophils % 0.4; HCT 36.6 % (40.0-50.0); HGB 11.3 g/dL (13.5-17.5); Immature Grans % 0.6; Lymphocytes % 24.2; MCH 26.2 pg (27.0-33.0); MCHC 30.9 % (32.0-36.0); MCV 84.7 fL (80-95); MPV 10.9 fL (8.0-11.0); Monocytes % 8.1; Neutrophils % 66.5; Nucleated RBC 0 %; RBC 4.32 10^6/uL (4.36-5.78); RDW 18.7 % (11.8-14.1); RDW-SD 58.8 fL; WBC 5.41 10^3/uL (4.4-10.8)
[2021-04-08 07:29] LABS: Platelet Count 85 10^3/uL (130-400)
[2021-04-08 07:30] LABS: Diff Comment Diff Reviewed; RBC Morphology Normal
[2021-04-08] MEDS: Pantoprazole 40 MG TABCR PO (07:42)
[2021-04-08] MEDS: Prochlorperazine 10 MG TAB PO (07:42)
[2021-04-08 07:46] LABS: Anion Gap 10.1 mmol/L (3-11); BUN 17 mg/dL (7-18); CO2 23.9 mmol/L (21.0-32.0); CREATININE 0.9 mg/dL (0.70-1.30); Calcium 8.5 mg/dL (8.5-10.1); Chloride 109 mmol/L (98-107); Glucose 97 mg/dL (74-106); Potassium 4.1 mmol/L (3.5-5.1); Sodium 143 mmol/L (136-145)
[2021-04-08 08:24] VITALS: BP 130/87; PULSE 69; RESP 18; TEMP 36.2; O2SAT 95
--- NOTE | 2021-04-08 09:35 | INITIAL_ITS ---
- If Service Date Differs Date of service: 04/08/21 Time of Service: 09:35 Care Management Initial Assess REASON FOR HOSPITALIZATION:: Fever PAST MEDICAL HISTORY/PAST SURGICAL HISTORY:: Medical History (Updated 04/07/21 @ 21:36 by Willy Lora). H/O colon cancer, stage III. History of upper gastrointestinal bleeding. related to H. pylori infection PREVIOUS FUNCTIONAL STATUS/SOCIAL/FAMILY SUPPORTS:: Frankie lives in [place], [place] with his Soheila. 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 Frankie and Rachel have no children. he is independent at baseline. CURRENT FUNCTIONAL STATUS:: Frankie was sititing up in bed visiting with his Rachel. He shared that he is hopeful he will be discharged today. Frankie does not feel he will require any services at home. He has completed 03/19 chemotherapy treatments and stated that he has tolerated them fairly well. ADVANCE DIRECTIVES:: none on file Has patient been provided with info about the portal/API?: Yes Did the patient sign up for the portal?: Yes (previously) CODE STATUS:: Full Code INSURANCE COVERAGE / FINANCIAL ISSUES:: BS CURRENT HOME/COMMUNITY SERVICES/EQUIPMENT:: none PRIMARY CARE PHYSICIAN:: Milka Castañeda POTENTIAL DISCHARGE NEEDS:: Follow up with PCP and Oncology team PATIENT/FAMILY EDUCATION NEEDS:: Review of discharge instructions, including medications, activity, limitations, follow up plan, Ask Me Three TRANSPORTATION:: via private vehicle with family PLAN:: Frankie will likely be discharged home with a resumption of services. He will follow up with his PCP and Oncology team and transport with family. CM will support discharge planning needs.
[2021-04-08] MEDS: VANCOMYCIN/WATER (PEG) 1.5 GM/300 ML BAG IVPB (12:05)
[2021-04-08] MEDS: Normal Saline Flush 10 ML SYR IVP (12:05)
--- NOTE | 2021-04-08 15:09 | DSE_ITS ---
Date of service: 04/08/21 Time of Service: 15:09 DS: Diagnosis Discharge Diagnosis (1) Fever: Status: Acute (2) Encounter for care related to Port-a-Cath: Status: Acute (3) H/O colon cancer, stage III: Status: Acute Discharge Plan Disposition Patient Disposition: HOME Condition: Good Discharge Details Reason For Visit: Pneumonia,Fever Admit Date/Time: 04/07/21 15:47 Admit Provider: Willy Lora Attending Provider: Willy Lora [facility] Course: 40 yr old male w/ PMH of stage 3 adenocarcinoma of the colon, s/p hemicolectomy and ostomy dx 09/2020 and now on FOLFOX chemotherapy through [facility] oncology round 10 of , which he just completed. He says that he went for labs on Thursday (2days ago) prior to initiating his most recent chemotherapy run and his mediport flushed and nisha back fine and labs were obtained from it. He had his chemotherapy started and today completed his run but when he and his de- accessed the port the port would not draw back but was able to be flushed. He checked his vitals including his temperature and noted he had a low grade fever of 101. He called his oncologist education intern and was told to go to the nearest hospital. He says that he has felt chilled today but no actual rigors. He denies any cough or sputum production, chest pain/pressure, sinus pressure, earache, sore throat, nausea or vomiting nor any abedominal pains nor any urinary discomf ort. He has a colostomy and has had his usual output and consistency. On arrival to the ER his vital signs showed him to be afebrile at 37.4 C. The rest of his vital signs were stable. His labs demonstrated normal WBC of 8000, minimally elevated lactate of 2.0, CMP demonstrating low potassium of 3.2, low calcium of 7.8 but his albumin is low at 3.1 (corrected calcium is 8.52. CRP is normal at 0.23 and procalcitonin is 0.1. UA is unremarkable. His CXR was initially read by [facility] as showing a subtle RUL hazy airspace opacity while our in house radiologist read this as showing no acute pulmonary findings. The patient did offer that he had a brief episode of coughing and gagging after taking a drink this morning. However he denies any dyspnea or coughing this afernoon. Treatment in the ER included obtaining blood cultures and initiation of broad spectrum antibiotics including doxycycline, Zosyn, and Vancomycin. Despite the mediport not being able to have blood drawn back, there is no pain over the mediport and no erythema or induration. Blood cultures after 24 hours returned negative for any bacterial growth. The patient never developed any cough, dyspnea or fevers. His Mediport was easily accessed and flushed and easily nisha back blood by the infusion nursing staff. He did not require any cath-katy. His repeat labs on 04/08 included a CBC and BMP and his hypokalemia had been corrected and his CBC showed no leukocytosis. CRP and procalcitonin were normal. As the patient had no evidence for infection and had no fevers, and no acute compplaints and his blood cultures were negative and his mediport was functional, he was discharged in good condition and told to follow up w/ his oncologist. Home Meds and New Rx's Prescriptions: Continued trazodone 50 mg Tablet 50 mg PO DAILY PRNRF: 0 prochlorperazine maleate 10 mg Tablet 10 mg PO Q6H PRNRF: 0 pantoprazole 40 mg Tablet,Delayed Release (Dr/Ec) 40 mg PO BID RF: 0 dexamethasone 4 mg Tablet PO BID RF: 0 Discharge Instructions Instructions: Fever in Adults (GEN) Stand Alone Forms: Nursing Discharge Form Referrals: Milka Castañeda [Primary Care Provider] - (Please call and follow up with your PCP in 1-2 weeks.) Activity:: Activity as Tolerated Equipment/Supplies:: No Equipment Needed Diet:: Normal Diet Discharge Orders Discharge Orders: Discharge Order (Routine); Ordered 04/08/21 Ordered By: Willy Lora Discharge Data Discharge Date/Time-TO BE ENTERED AT DEPARTURE: 04/08/21 16:15 DS: Summary Time Spent with Patient providing and/or coordinating discharge services: Less than 30 minutes Status at Discharge Functional status at discharge: independent ambulation Overall status at discharge: patient is back to baseline Mental Status: mental status grossly normal Speech and Movement: speech and movement normal Mood: congruent mood Affect: normal affect Exam Narrative Exam Narrative: Overweight white male, alert and oriented x 3. sitting up in bed conversing w/ his . chest wall w/out erythema or induration around the mediport. Psych Mental Status: mental status grossly normal Speech and Movement: speech and movement normal Mood: congruent mood Affect: normal affect DS: Data Vitals/I&O Vitals and I&O: Vital Signs Temperature 36.2 C L 04/08/21 08:24 Temperature Source Tympanic 04/08/21 08:24 Pulse 69 04/08/21 08:24 Pulse Rhythm Regular 04/08/21 07:30 Respiratory Rate 18 04/08/21 08:24 Respiratory Effort Non-Labored 04/08/21 07:30 Respiratory Depth Normal 04/08/21 07:30 Respiratory Pattern Normal 04/08/21 07:30 Blood Pressure 130/87 04/08/21 08:24 Blood Pressure Position Sitting 04/07/21 12:32 Pulse Oximetry 95 04/08/21 08:24 Oxygen Delivery Method Room Air 04/08/21 08:24 Oxygen Flow Rate 0 04/08/21 08:24 Pain Level 0 04/08/21 03:20 Comment 04/07/21 16:53 Intake & Output 04/07/21 04/08/21 04/08/21 23:59 11:59 23:59 Intake Total 2550 / 2550 460 / 460 Output Total 600 / 600 1250 / 1800 550 / 1800 Balance 1950 / 1950 -790 / -1340 -550 / -1340 Weight 92.986 kg 94.7 kg Intake: IV 1560 / 1560 360 / 360 Oral 990 / 990 100 / 100 Output: Urine 600 / 600 900 / 1300 400 / 1300 Stool 350 / 500 150 / 500 Other: Urine Color Yellow Yellow Yellow Urine Appearance Clear Clear Clear Urine Odor Normal Normal None Comment Void x1 in the toilet. Voiding Methods Toilet Toilet Toilet Data Completed and Pending Labs on day of discharge: Labs from last 24 hours 04/08/21 04/08/21 04/07/21 06:22 06:22 13:15 WBC 5.41 D RBC 4.32 L Hgb 11.3 L Hct 36.6 L MCV 84.7 MCH 26.2 L MCHC 30.9 L RDW 18.7 H Plt Count 85 L MPV 10.9 Immature Gran % 0.6 Neutrophils % 66.5 Lymphocytes % 24.2 Monocytes % 8.1 Eosinophils % 0.4 Basophils % 0.2 Nucleated RBC % 0 Absolute Neutrophils 3.60 Absolute Lymphocytes 1.31 Absolute Monocytes 0.44 Absolute Eosinophils 0.02 Absolute Basophils 0.01 RBC Morphology Normal Sodium 143 Potassium 4.1 D Chloride 109 H Carbon Dioxide 23.9 Anion Gap 10.1 BUN 17 Creatinine 0.9 Estimated GFR/1.73 m2 >= 60.00 Glucose 97 D Calcium 8.5 Magnesium 1.8 C-Reactive Protein 0.23 SARS-CoV-2 (PCR) 04/07/21 12:55 WBC RBC Hgb Hct MCV MCH MCHC RDW Plt Count MPV Immature Gran % Neutrophils % Lymphocytes % Monocytes % Eosinophils % Basophils % Nucleated RBC % Absolute Neutrophils Absolute Lymphocytes Absolute Monocytes Absolute Eosinophils Absolute Basophils RBC Morphology Sodium Potassium Chloride Carbon Dioxide Anion Gap BUN Creatinine Estimated GFR/1.73 m2 Glucose Calcium Magnesium C-Reactive Protein SARS-CoV-2 (PCR) Negative 04/07/21 13:45 Blood Blood Culture - Pending 04/07/21 13:15 Blood Blood Culture - Pending Preliminary micro results at discharge 04/07/21 14:25 Urine Culture - Preliminary Urine - Voided 04/07/21 13:45 Blood Culture - Pending Blood 04/07/21 13:15 Blood Culture - Pending Blood [facility] Medical History (Updated 04/07/21 @ 21:36 by Willy Lora) H/O colon cancer, stage III History of upper gastrointestinal bleeding related to H. pylori infection Family History (Updated 04/07/21 @ 18:04 by Willy Lora) Father Cancer multiple cancers; believed to be related to prior multiple organ recipient (kidney and liver transplants) Mother Succinylcholine adverse reaction Social History Smoking/Tobacco Use Status: Never Smoking risk assessment performed?: Yes Alcohol Intake: never Drug use: Never Substance use type: does not use Do you feel safe at home: Yes Do you feel safe in your relationship?: Yes
[2021-04-08] MEDS: Heparin 500 UNITS/5 ML SYRINGE IV (16:08)
== END 2021-04-08 16:15 | disposition home or self-care (01) ==
LOC: ER 15:49 → MS 18:23
PROVIDERS: Admitting Provider Internal Medicine; Emergency Provider Student in an Organized Health Care Education/Training Program; PCP Family Medicine; Visit Provider Internal Medicine
DX: R50.9 Fever, unspecified (principal); D84.821 Immunodeficiency due to drugs; Z79.899 Other long term (current) drug therapy; Z93.3 Colostomy status; C18.9 Malignant neoplasm of colon, unspecified; Z20.822 Contact with and (suspected) exposure to COVID-19
CPT/HCPCS: 36415; 80048; 80053; 84145; 87040; 87449; 87635; 96361; 96365; 96366; 96367; 96368; 99285; 71045; 81003; 83605; 83735; 85025; 86140; 87086; 99217; 99218; G0378; J2543

== ENCOUNTER 2021-05-03 00:48 | Outpatient (RCR) | payer BC, SELFPAY ==
[2021-04-19] MEDS: Normal Saline Flush 10 ML SYR IVP (08:30)
[2021-04-19 08:38] LABS: Abs Immature Grans 0.01 10^3/uL (0.0-0.06); Absolute Basophil Count 0.02 10^3/uL (0.0-0.2); Absolute Eosinophil Count 0.06 10^3/uL (0.0-0.7); Absolute Lymphocyte Count 1.52 10^3/uL (1.2-3.4); Absolute Monocyte Count 0.55 10^3/uL (0.1-0.8); Absolute Neutrophil Count 1.54 10^3/uL (1.2-6.7); Basophils % 0.5; Eosinophils % 1.6; HCT 40.5 % (40.0-50.0); HGB 13.1 g/dL (13.5-17.5); Immature Grans % 0.3; Lymphocytes % 41.1; MCH 27.2 pg (27.0-33.0); MCHC 32.3 % (32.0-36.0); MPV 9.8 fL (8.0-11.0); Monocytes % 14.9; Neutrophils % 41.6; Nucleated RBC 0 %; Platelet Count 115 10^3/uL (130-400); RBC 4.82 10^6/uL (4.36-5.78); RDW 17.1 % (11.8-14.1); RDW-SD 52.1 fL
[2021-04-19 08:54] LABS: BUN 9 mg/dL (7-18); CREATININE 0.9 mg/dL (0.70-1.30); Calcium 8.8 mg/dL (8.5-10.1); Glucose 127 mg/dL (74-106)
[2021-04-19 08:55] LABS: ALT 68 U/L (16-63); AST 67 U/L (15-37); Albumin 3.4 g/dL (3.4-5.0); Alkaline Phosphatase 113 U/L (46-116); Anion Gap 8.7 mmol/L (3-11); Bilirubin, Total 0.6 mg/dL (0.2-1.0); CO2 26.3 mmol/L (21.0-32.0); Chloride 107 mmol/L (98-107); Potassium 4.1 mmol/L (3.5-5.1); Sodium 142 mmol/L (136-145); Total Protein 7.4 g/dL (6.4-8.2)
[2021-04-19 18:41] LABS: CEA <0.5 ng/mL (See Note)
[2021-05-03 08:42] LABS: HCT 39.9 % (40.0-50.0); HGB 12.8 g/dL (13.5-17.5); MCH 27.3 pg (27.0-33.0); MCHC 32.1 % (32.0-36.0); MCV 85.1 fL (80-95); MPV 10.6 fL (8.0-11.0); Nucleated RBC 0 %; Platelet Count 105 10^3/uL (130-400); RBC 4.69 10^6/uL (4.36-5.78); RDW 16.1 % (11.8-14.1); RDW-SD 49.1 fL; WBC 4.11 10^3/uL (4.4-10.8)
[2021-05-03] MEDS: Normal Saline Flush 10 ML SYR IVP (08:42)
[2021-05-03 08:53] LABS: ALT 61 U/L (16-63); AST 64 U/L (15-37); Albumin 3.4 g/dL (3.4-5.0); Alkaline Phosphatase 107 U/L (46-116); BUN 16 mg/dL (7-18); Bilirubin, Total 0.4 mg/dL (0.2-1.0); CREATININE 0.9 mg/dL (0.70-1.30); Calcium 8.8 mg/dL (8.5-10.1); Chloride 107 mmol/L (98-107); Glucose 103 mg/dL (74-106); Sodium 141 mmol/L (136-145); Total Protein 7.3 g/dL (6.4-8.2)
[2021-05-03 09:02] LABS: Absolute Eosinophil Count 0.12 10^3/uL (0.0-0.7); Absolute Lymphocyte Count 1.97 10^3/uL (1.2-3.4); Absolute Monocyte Count 0.49 10^3/uL (0.1-0.8); Absolute Neutrophil Count 1.52 10^3/uL (1.2-6.7); Atypical Lymphocytes % 3; Bands % 1
[2021-05-03 09:03] LABS: Anisocytosis 1+; Diff Comment Manual Differential
[2021-05-03 17:38] LABS: CEA <0.5 ng/mL (See Note)
== END 2021-05-07 23:59 | disposition home or self-care (01) ==
LOC: INF 00:48
PROVIDERS: PCP Family Medicine; Visit Provider Internal Medicine Hematology & Oncology
DX: C18.6 Malignant neoplasm of descending colon (principal); Z45.2 Encounter for adjustment and management of vascular access device
CPT/HCPCS: 36591; 80053; 82378; 85025